=== PATIENT | male | born 1985 | race Caucasian/White ===

== ENCOUNTER 2023-03-12 16:12 | Emergency (ER) | payer MEDICAID ==
[~2023-03-12] VITALS: Ht 175.3 cm; Wt 75.0 kg
[2023-03-12 16:42] VITALS: BP 114/75; O2SAT 98
[2023-03-12] MEDS ORDERED: IBUP-2028 MT (18:58)
[2023-03-12] MEDS ORDERED: AMOX500T2 MT (18:58)
[2023-03-12] MEDS ORDERED: IBUPROFEN 400MG TABLET PO ONE (19:00)
[2023-03-12 19:55] VITALS: PULSE 95; RESP 20; TEMP 98.9
== END 2023-03-12 20:05 | disposition home or self-care (01) ==
LOC: ER 16:12
DX: R05.9 Cough, unspecified (principal); J02.9 Acute pharyngitis, unspecified; H66.92 Otitis media, unspecified, left ear
CPT/HCPCS: 71045; 87070; 87430; 93005; 99285

== ENCOUNTER 2023-03-23 16:58 | Emergency (ER) | payer MEDICAID, OTHER ==
[~2023-03-23] VITALS: Ht 172.7 cm; Wt 85.0 kg
[~2023-03-23 16:58] MED LIST: AMOX500T2 MT; IBUP-2028 MT
[2023-03-23 17:29] VITALS: O2SAT 99
[2023-03-23] MEDS ORDERED: CEFD300C3 MT (17:35)
[2023-03-23 17:40] VITALS: BP 128/72; PULSE 72; RESP 16; TEMP 98.4
== END 2023-03-23 17:40 | disposition home or self-care (01) ==
LOC: ER 16:58
DX: H66.90 Otitis media, unspecified, unspecified ear (principal)
CPT/HCPCS: 99283